=== PATIENT | female | born 1970 | race African-American/Black ===

== ENCOUNTER 2022-05-18 20:09 | Emergency (ER) | payer SELFPAY ==
[2022-05-18] VITALS (17 sets, daily range): BP systolic 122–142; BP diastolic 74–89; PULSE 81–96; RESP 18–24; TEMP 36.7–37.1; O2SAT 96–100; BMI 42.9
[2022-05-18] MEDS: 0.9 % SODIUM CHLORIDE 1000 ml 1,000 ML IV ×2 (20:28→21:25)
[2022-05-18 20:31] LABS: Basophils Percent Auto 0.2 % (0.0-3.0); Eosinophils Percent Auto 0.9 % (0.0-7.0); Hematocrit 39.6 % (33.0-51.0); Hemoglobin* 12.5 gm/dL (12.0-16.0); Immature Granulocytes Pct Auto 0.2 %; Lymphocytes Percent Auto 40.1 % (20-44); Mean Corpuscular HGB Conc 32 gm/dL (32-36); Mean Corpuscular Hemoglobin 27 pg (26-34); Mean Corpuscular Volume 85 fL (80-100); Monocytes Percent Auto 3.7 % (0.0-11.0); Neutrophils Percent Auto 54.9 % (42.0-72.0); Platelet Count* 487 K/uL (140-440); RDW Coefficient of Variation % 14.4 % (11.5-15.5); Red Blood Count 4.65 m/uL (4.00-5.20); White Blood Count* 16.59 K/uL (4.50-11.00)
[2022-05-18 20:33] LABS: Slide Review Reflex Yes
[2022-05-18 20:38] LABS: Chloride* 106 mmol/L (96-114); Sodium* 138 mmol/L (135-149)
[2022-05-18 20:40] LABS: INR 0.96 (0.91-1.10); Prothrombin Time 13.4 Seconds
[2022-05-18 20:41] LABS: Blood Urea Nitrogen* 11 mg/dL (7-30); Carbon Dioxide* 10 mmol/L (20-32); Creatinine* 0.9 mg/dL (0.5-1.5); Est. Creatinine Clearance* 63.86; Estimated Glomerular Filt Rate 77 ml/min; Glucose* 158 mg/dL (60-115); Potassium* 4.1 mmol/L (3.6-5.1)
[2022-05-18 20:42] LABS: Calcium* 9.4 mg/dL (8.4-10.6)
[2022-05-18 20:43] LABS: D Dimer Quantitative* 1.14 ug/ml (0.00-0.50)
--- NOTE | 2022-05-18 20:49 | ED.GENADULT ---
HPI - General Adult General Date Seen: 05/18/22 Chief complaint: Syncope/Fainted Stated complaint: Syncope Time Seen by Provider: 05/18/22 20:12 Source: patient Mode of arrival: other (Stretcher) Limitations: no limitations and altered mental status History of Present Illness HPI narrative: Patient is a 51-year-old female who just started working down long-term care 2 days ago, she is a traveler edges came here from [place], she works as a health aide in long-term care, she was on a break, and she was found, slumped in her chair, with some drool coming down her face, she was lowered to the ground, she promptly regained consciousness, but was confused at the time. Was unknown how long she was there, thought to be less than 15 minutes as it was her break. She is now back to baseline, but clearly was confused when we 1st found her. Blood sugar was 160, she denies any medication ingestion, any history of diabetes, any history of falls or injury, but can not remember the events over what happened. She is working nights, just came on her shift, a few hours ago. She ate breakfast this morning but did not eat since then. No past history of any heart problems, lung problems, or other issues. Denies any current pain in her head, chest, shortness of breath, and was feeling fine up to this. Associated symptoms: denies other symptoms Treatments prior to arrival: none Related Data Home Medications Medication Instructions Recorded Confirmed No Known Home Medications 05/18/22 05/18/22 Allergies Allergy/AdvReac Type Severity Reaction Status Date / Time No Known Drug Allergies Allergy Verified 05/18/22 20:28 Review of Systems Status of ROS: Reports: 10 or more systems reviewed and unremarkable except as noted in History and below Exam Narrative: Exam Narrative: Patient is seen in room a, she is alert oriented speaking to me normally, no slurring of her words, she knows where she is, but she has no recollection of the events that just occurred. Patient is speaking normally, problem with noslurring words, oriented x3. Head eyes ears nose and throat exam show equal pupils, no scleral icterus, extraocular muscles are normal, no facial droop, speech is normal, trachea normal and midline. Thyroid normal midline palpable not enlarged. Chest shows symmetrical rise bilaterally, normal auscultation with no wheezes, no increased work of breathing, no overt bruising or lesions seen, no tenderness is noted on auscultation. Heart sounds normal with no S3-S4 no murmurs clicks or gallops. Abdomen shows no obvious masses or hepatosplenomegaly, no organomegaly, bowel sounds are normal in all quadrants. No tenderness is noted also in all quadrants. Upper and lower extremities show normal power, normal range of motion, pulses are normal, sensations normal, fine motor movements are normal, pelvis is stable to rocking. Cervical spine shows normal range of motion, and palpably not tender. Thoracic spine shows normal range of motion, and palpably not tender, lumbar spine shows no tenderness to palpation percussion and is otherwise normal range of motion. Skin shows no rashes, petechiae or eccymosis. She is agreeable to workup, she said this is never happened to her before. No evidence of any oropharyngeal trauma, tongue biting, she did not urinate, if her incontinence or onchoparesis Const: Vital Signs, click to edit/add: Vital Signs - 24 hr 05/18/22 20:21 05/18/22 20:34 05/18/22 20:39 Temperature 98.1 F 98.8 F Pulse Rate Pulse Rate [Right Pulse Oximeter] 95 92 89 Respiratory Rate 18 24 Blood Pressure Blood Pressure [Le ft Upper Arm] 122/74 142/89 H Pulse Oximetry 96 98 Oxygen Delivery [facility] Room Air Room Air 05/18/22 20:26 05/18/22 20:30 05/18/22 20:32 Temperature Pulse Rate 94 92 96 Pulse Rate [Right Pulse Oximeter] Respiratory Rate Blood Pressure 142/89 H Blood Pressure [Le ft Upper Arm] Pulse Oximetry 99 99 100 Oxygen Delivery [facility] 05/18/22 20:33 05/18/22 20:46 05/18/22 20:45 Temperature Pulse Rate 95 87 Pulse Rate [Right Pulse Oximeter] Respiratory Rate Blood Pressure Blood Pressure [Le ft Upper Arm] Pulse Oximetry 100 98 98 Oxygen Delivery [facility] 05/18/22 20:47 05/18/22 20:48 05/18/22 21:00 Temperature Pulse Rate 86 86 85 Pulse Rate [Right Pulse Oximeter] Respiratory Rate Blood Pressure 139/88 Blood Pressure [Le ft Upper Arm] Pulse Oximetry 98 98 99 Oxygen Delivery [facility] 05/18/22 21:01 02/01/23 21:23 05/18/22 21:30 Temperature Pulse Rate 85 86 81 Pulse Rate [Right Pulse Oximeter] Respiratory Rate Blood Pressure 134/89 Blood Pressure [Le ft Upper Arm] Pulse Oximetry 98 99 100 Oxygen Delivery Me [facility] 05/18/22 21:32 05/18/22 22:56 Temperature 98.8 F Pulse Rate 81 Pulse Rate [Right Pulse Oximeter] 89 Respiratory Rate 24 Blood Pressure 140/89 H Blood Pressure [Le ft Upper Arm] Pulse Oximetry 98 Oxygen Delivery Me [facility] Documenting provider has reviewed patient's vital signs: yes Course Course Hospital Course: Discussed with the patient that at this time, her D-dimer is elevated, in the setting of a it least syncope, I would recommend a PE study, she is in agreement. She feels back to baseline at this point, and feels great, we will give her sec L of fluids, and recheck her troponin and EKG. Reevaluation(s) Reevaluation #1: Patient is able to walk around the ER, she has remained is normal sinus rhythm on the monitor, 2nd EKG shows no changes, follow-up troponin done 2 hours after she got here shows 0.02, given her delta of 0.[address] scan is done with PE protocol showing no evidence of PE, she did have 1 nodule, that will need follow-up in this is explain to her. Her urine drug screen did show marijuana, which is not a problem, and cause of this. I explained to her that I do not have a cause of this, her total CO2 was down, which can be an element of dehydration, I feel that she should maintain her fluids eating get some sleep. If she has recurrent episodes with syncope, feeling that she has tachycardia, passing out, or other issue she should come back is seen. I do not get a feeling that this was a seizure. She was comfortable and reassured by this. Time: 22:59 Vital Signs Vital signs: Initial Vital Signs Temperature 98.1 F 05/18/22 20:21 Temperature Source Temporal Artery Scan 05/18/22 20:21 Pulse Rate 95 05/18/22 20:21 Respiratory Rate 18 05/18/22 20:21 Blood Pressure 122/74 05/18/22 20:21 Blood Pressure Mean 90 05/18/22 20:21 Blood Pressure Position Supine 05/18/22 20:21 Pulse Oximetry 96 05/18/22 20:21 Oxygen Delivery Method 05/18/22 20:21 Vital Signs Temperature 98.1 F 05/18/22 20:21 Pulse Rate 95 05/18/22 20:21 Respiratory Rate 18 05/18/22 20:21 Blood Pressure 122/74 05/18/22 20:21 Pulse Oximetry 96 05/18/22 20:21 Oxygen Delivery Method 05/18/22 20:21 Temperature 98.8 F 05/18/22 22:56 Pulse Rate 89 05/18/22 22:56 Respiratory Rate 24 05/18/22 22:56 Blood Pressure 140/89 H 05/18/22 21:32 Pulse Oximetry 98 05/18/22 21:32 Oxygen Delivery Method 05/18/22 20:39 Medical Decision Making MDM Narrative Medical decision making narrative: Life-threatening differential diagnosis considered include: Cardiac arrhythmia, acute blood loss, and intracranial bleed. Other differential diagnosis include but are not limited to vasovagal syncope, orthostatic syncope, seizure, as well as other etiologies Lab Data Lab results reviewed: Yes I reviewed the patient's lab results Labs: Lab Results 05/18/22 05/18/22 05/18/22 Range/Units 20:13 20:15 20:15 WBC 16.59 H (4.50-11.00) K/uL RBC 4.65 (4.00-5.20) m/uL Hgb 12.5 (12.0-16.0) gm/dL Hct 39.6 (33.0-51.0) % MCV 85 (80-100) fL MCH 27 (26-34) pg MCHC 32 (32-36) gm/dL RDW Coeff of Georgette 14.4 (11.5-15.5) % Plt Count 487 H (140-440) K/uL Neut % (Auto) 54.9 (42.0-72.0) % Lymph % (Auto) 40.1 (20-44) % [place] % (Auto) 3.7 (0.0-11.0) % Eos % (Auto) 0.9 (0.0-7.0) % Baso % (Auto) 0.2 (0.0-3.0) % Neut # (Auto) 9.10 H (1.7-7.0) K/uL Lymph # (Auto) 6.70 H (0.90-2.90) K/uL [place] # (Auto) 0.60 (0.00-0.90) K/UL Eos # (Auto) 0.10 (0.00-0.50) K/uL Baso # (Auto) 0.00 (0.00-0.30) K/uL Diff Slide Review Acceptable Review (Acceptable) INR (0.91-1.10) D-Dimer Quant (PE/DVT) (0.00-0.50) ug/ml Sodium 138 (135-149) mmol/L Potassium 4.1 (3.6-5.1) mmol/L Chloride 106 (96-114) mmol/L Carbon Dioxide 10 L (20-32) mmol/L BUN 11 (7-30) mg/dL Creatinine 0.9 (0.5-1.5) mg/dL Estimated Creat Clear 63.86 Estimated GFR 77 ml/min Glucose 158 H (60-115) mg/dL Calcium 9.4 (8.4-10.6) mg/dL HCG, Qual (Negative) Urine Color (Yellow) Urine Appearance (Clear) Urine pH (5.0-8.5) Ur Specific [place] (1.000-1.030) Urine Protein (Negative) Urine Glucose (UA) (Negative) Urine Ketones (Negative) Urine Blood (Negative) Urine Nitrite (Negative) Urine Bilirubin (Negative) Urine Urobilinogen (0.2-1.0) Ur Leukocyte Esterase (Negative) Urine RBC (0-2) Urine WBC (0-5) Urine WBC Clumps (None) Ur Squamous Epith Cells (None-Few) Urine Bacteria (None) Urine Opiates Screen (Negative) Ur Oxycodone Screen (Negative) Urine Methadone Screen (Negative) Ur Propoxyphene Screen (Negative) Ur Barbiturates Screen (Negative) U Tricyclic Antidepress (Negative) Ur Phencyclidine Scrn (Negative) Ur Amphetamines Screen (Negative) U Methamphetamines Scrn (Negative) U Benzodiazepines Scrn (Negative) Urine Cocaine Screen (Negative) U Marijuana (THC) Screen (Negative) Ur Drug Screen Comment Ethyl Alcohol (0.01-0.03) % SARS-CoV-2 (PCR) Negative SARS-CoV-2 (Negative) Influenza Type A (PCR) Negative PCR FLU A (Negative) Influenza Type B (PCR) Negative PCR FLU B (Negative) RSV (PCR) Negative PCR RSV (Negative) POC Troponin I (0.01-0.04) ng/ml 05/18/22 05/18/22 05/18/22 Range/Units 20:15 20:15 20:15 WBC (4.50-11.00) K/uL RBC (4.00-5.20) m/uL Hgb (12.0-16.0) gm/dL Hct (33.0-51.0) % MCV (80-100) fL MCH (26-34) pg MCHC (32-36) gm/dL RDW Coeff of Georgette (11.5-15.5) % Plt Count (140-440) K/uL Neut % (Auto) (42.0-72.0) % Lymph % (Auto) (20-44) % [place] % (Auto) (0.0-11.0) % Eos % (Auto) (0.0-7.0) % Baso % (Auto) (0.0-3.0) % Neut # (Auto) (1.7-7.0) K/uL Lymph # (Auto) (0.90-2.90) K/uL [place] # (Auto) (0.00-0.90) K/UL Eos # (Auto) (0.00-0.50) K/uL Baso # (Auto) (0.00-0.30) K/uL Diff Slide Review (Acceptable) INR 0.96 (0.91-1.10) D-Dimer Quant (PE/DVT) 1.14 H (0.00-0.50) ug/ml Sodium (135-149) mmol/L Potassium (3.6-5.1) mmol/L Chloride (96-114) mmol/L Carbon Dioxide (20-32) mmol/L BUN (7-30) mg/dL Creatinine (0.5-1.5) mg/dL Estimated Creat Clear Estimated GFR ml/min Glucose (60-115) mg/dL Calcium (8.4-10.6) mg/dL HCG, Qual (Negative) Urine Color (Yellow) Urine Appearance (Clear) Urine pH (5.0-8.5) Ur Specific [place] (1.000-1.030) Urine Protein (Negative) Urine Glucose (UA) (Negative) Urine Ketones (Negative) Urine Blood (Negative) Urine Nitrite (Negative) Urine Bilirubin (Negative) Urine Urobilinogen (0.2-1.0) Ur Leukocyte Esterase (Negative) Urine RBC (0-2) Urine WBC (0-5) Urine WBC Clumps (None) Ur Squamous Epith Cells (None-Few) Urine Bacteria (None) Urine Opiates Screen (Negative) Ur Oxycodone Screen (Negative) Urine Methadone Screen (Negative) Ur Propoxyphene Screen (Negative) Ur Barbiturates Screen (Negative) U Tricyclic Antidepress (Negative) Ur Phencyclidine Scrn (Negative) Ur Amphetamines Screen (Negative) U Methamphetamines Scrn (Negative) U Benzodiazepines Scrn (Negative) Urine Cocaine Screen (Negative) U Marijuana (THC) Screen (Negative) Ur Drug Screen Comment Ethyl Alcohol < 0.01 L (0.01-0.03) % SARS-CoV-2 (PCR) (Negative) Influenza Type A (PCR) (Negative) Influenza Type B (PCR) (Negative) RSV (PCR) (Negative) POC Troponin I 0.00 L (0.01-0.04) ng/ml 05/18/22 05/18/22 05/18/22 Range/Units 20:15 21:17 21:17 WBC (4.50-11.00) K/uL RBC (4.00-5.20) m/uL Hgb (12.0-16.0) gm/dL Hct (33.0-51.0) % MCV (80-100) fL MCH (26-34) pg MCHC (32-36) gm/dL RDW Coeff of Georgette (11.5-15.5) % Plt Count (140-440) K/uL Neut % (Auto) (42.0-72.0) % Lymph % (Auto) (20-44) % [place] % (Auto) (0.0-11.0) % Eos % (Auto) (0.0-7.0) % Baso % (Auto) (0.0-3.0) % Neut # (Auto) (1.7-7.0) K/uL Lymph # (Auto) (0.90-2.90) K/uL [place] # (Auto) (0.00-0.90) K/UL Eos # (Auto) (0.00-0.50) K/uL Baso # (Auto) (0.00-0.30) K/uL Diff Slide Review (Acceptable) INR (0.91-1.10) D-Dimer Quant (PE/DVT) (0.00-0.50) ug/ml Sodium (135-149) mmol/L Potassium (3.6-5.1) mmol/L Chloride (96-114) mmol/L Carbon Dioxide (20-32) mmol/L BUN (7-30) mg/dL Creatinine (0.5-1.5) mg/dL Estimated Creat Clear Estimated GFR ml/min Glucose (60-115) mg/dL Calcium (8.4-10.6) mg/dL HCG, Qual Negative Cancelled (Negative) Urine Color Yellow (Yellow) Urine Appearance Cloudy A (Clear) Urine pH 5.0 (5.0-8.5) Ur Specific [place] 1.020 (1.000-1.030) Urine Protein 1+ A (Negative) Urine Glucose (UA) Negative (Negative) Urine Ketones Negative (Negative) Urine Blood Trace-intact A (Negative) Urine Nitrite Negative (Negative) Urine Bilirubin Negative (Negative) Urine Urobilinogen 0.2 (0.2-1.0) Ur Leukocyte Esterase Negative (Negative) Urine RBC 0-2 (0-2) Urine WBC 0-2 (0-5) Urine WBC Clumps None (None) Ur Squamous Epith Cells Moderate A (None-Few) Urine Bacteria Few A (None) Urine Opiates Screen Negative (Negative) Ur Oxycodone Screen Negative (Negative) Urine Methadone Screen Negative (Negative) Ur Propoxyphene Screen Negative (Negative) Ur Barbiturates Screen Negative (Negative) U Tricyclic Antidepress Negative (Negative) Ur Phencyclidine Scrn Negative (Negative) Ur Amphetamines Screen Negative (Negative) U Methamphetamines Scrn Negative (Negative) U Benzodiazepines Scrn Negative (Negative) Urine Cocaine Screen Negative (Negative) U Marijuana (THC) Screen POSITIVE A* (Negative) Ur Drug Screen Comment See Note Ethyl Alcohol (0.01-0.03) % SARS-CoV-2 (PCR) (Negative) Influenza Type A (PCR) (Negative) Influenza Type B (PCR) (Negative) RSV (PCR) (Negative) POC Troponin I (0.01-0.04) ng/ml 05/18/22 Range/Units 22:09 WBC (4.50-11.00) K/uL RBC (4.00-5.20) m/uL Hgb (12.0-16.0) gm/dL Hct (33.0-51.0) % MCV (80-100) fL MCH (26-34) pg MCHC (32-36) gm/dL RDW Coeff of Georgette (11.5-15.5) % Plt Count (140-440) K/uL Neut % (Auto) (42.0-72.0) % Lymph % (Auto) (20-44) % [place] % (Auto) (0.0-11.0) % Eos % (Auto) (0.0-7.0) % Baso % (Auto) (0.0-3.0) % Neut # (Auto) (1.7-7.0) K/uL Lymph # (Auto) (0.90-2.90) K/uL [place] # (Auto) (0.00-0.90) K/UL Eos # (Auto) (0.00-0.50) K/uL Baso # (Auto) (0.00-0.30) K/uL Diff Slide Review (Acceptable) INR (0.91-1.10) D-Dimer Quant (PE/DVT) (0.00-0.50) ug/ml Sodium (135-149) mmol/L Potassium (3.6-5.1) mmol/L Chloride (96-114) mmol/L Carbon Dioxide (20-32) mmol/L BUN (7-30) mg/dL Creatinine (0.5-1.5) mg/dL Estimated Creat Clear Estimated GFR ml/min Glucose (60-115) mg/dL Calcium (8.4-10.6) mg/dL HCG, Qual (Negative) Urine Color (Yellow) Urine Appearance (Clear) Urine pH (5.0-8.5) Ur Specific [place] (1.000-1.030) Urine Protein (Negative) Urine Glucose (UA) (Negative) Urine Ketones (Negative) Urine Blood (Negative) Urine Nitrite (Negative) Urine Bilirubin (Negative) Urine Urobilinogen (0.2-1.0) Ur Leukocyte Esterase (Negative) Urine RBC (0-2) Urine WBC (0-5) Urine WBC Clumps (None) Ur Squamous Epith Cells (None-Few) Urine Bacteria (None) Urine Opiates Screen (Negative) Ur Oxycodone Screen (Negative) Urine Methadone Screen (Negative) Ur Propoxyphene Screen (Negative) Ur Barbiturates Screen (Negative) U Tricyclic Antidepress (Negative) Ur Phencyclidine Scrn (Negative) Ur Amphetamines Screen (Negative) U Methamphetamines Scrn (Negative) U Benzodiazepines Scrn (Negative) Urine Cocaine Screen (Negative) U Marijuana (THC) Screen (Negative) Ur Drug Screen Comment Ethyl Alcohol (0.01-0.03) % SARS-CoV-2 (PCR) (Negative) Influenza Type A (PCR) (Negative) Influenza Type B (PCR) (Negative) RSV (PCR) (Negative) POC Troponin I 0.02 (0.01-0.04) ng/ml Imaging Data CT scan - chest: Attestation: I have reviewed the pertinent imaging results. Radiologist's impression: atient: SOPHY SMITH Facility:?[facility] Patient ID:?[id number] Site Patient ID:?[id number]. Site :?[id number] Study:?CT Chest Angio PE STUDY-05/18/2022 10:02:59 PM Ordering Physician:Elisa Kidd Final Report: INDICATION: Syncope. TECHNIQUE: CT chest PE was acquired with 95 cc Isovue 370 IV contrast. COMPARISON: None. FINDINGS: Heart and vasculature: Contrast opacification of the pulmonary arterial tree is adequate. No sign of pulmonary embolism. Heart size is normal. Thoracic aorta and pulmonary artery are normal in caliber. Lungs and pleura: Small cluster of tree-in-bud nodules in the left lower lobe superior segment with an associated 1.2 cm pulmonary nodule. The remainder of the lungs are clear. No pleural effusion or pneumothorax. The central airways are clear. Lymph nodes/mediastinum: No mediastinal, hilar, or axillary adenopathy. Chest wall: No masses. Upper abdomen: Indeterminate 1.9 cm right adrenal nodule. Bones: Unremarkable for age. IMPRESSION: No pulmonary embolism. Small cluster of tree-in-bud nodules in the left lower lobe superior segment with an associated 1.2 cm pulmonary nodule. This could represent subclinical acute versus chronic infection. Recommend follow-up chest CT in 3 months to evaluate for persistence of the 1.2 cm nodule. Indeterminate 1.9 cm right adrenal nodule. Recommend dedicated routine adrenal CT for further characterization. Please note that all CT scans at this facility use dose modulation, iterative reconstruction, and/or weight-based dosing when appropriate to reduce radiation dose to as low as reasonably achievable. Dictated by Jonathan Tolbert MD @ 05/18/2022 10:15:54 PM (Electronic Signature) ECG Data Attestation: I personally reviewed and interpreted this ECG as follows: Prior ECG tracings: not available for review Interpretation: EKG shows normal sinus rhythm with a heart rate of 100, there is no acute ST wave changes, but there is some T-wave flattening throughout all the leads, which may be a normal variant. Her intervals are all normal, QRS, QT, LA. Assessment: No acute findings on EKG. Second EKG shows normal sinus rhythm, no acute changes. Impression: No acute changes. Discharge Plan Discharge Clinical Impression: Syncope and collapse, Incidental pulmonary nodule Patient Disposition: Home, Self-Care Condition: Stable Additional Instructions: Home, rest, continue fluids any, get some sleep, take it easy tomorrow, no alcohol x3 days, the tests all showed no evidence of blood clot, heart tests were normal, it showed that there probably was a little dehydration contributing to this also. There was a small pulmonary nodule which we discussed, recommend follow-up with her regular physician for recheck in [address] scan to ensure that is not growing. Further problems with passing out, then with would elicit a cardiac evaluation. Return as needed. The drug screen did show some marijuana, I consider this almost a normal part of life now, do not even really consider this an issue. This is just for your information. Prescriptions: No Action No Known Home Medications Follow Up/Referrals: Provider,Not a Local [Primary Care Provider] - Stand Alone Forms: MyHealth Info Instructions Procedures Ultrasound Cardiac exam #1: Anatomical areas examined: subxiphoid, parasternal long, parasternal short and apical 4 chamber Indications: other (Syncope) Exam type: limited transthoracic echocardiogram Impression: negative exam
[2022-05-18 20:52] LABS: HCG Qualitative Serum* Negative (Negative)
[2022-05-18 21:07] LABS: PCR FLU A Negative PCR FLU A (Negative); PCR FLU B Negative PCR FLU B (Negative); PCR RSV Negative PCR RSV (Negative)
[2022-05-18 21:09] LABS: Ethanol* < 0.01 % (0.01-0.03)
[2022-05-18 21:09] LABS: SARS PCR* Negative SARS-CoV-2 (Negative)
[2022-05-18 21:13] LABS: Slide Review Acceptable Review (Acceptable)
--- NOTE | 2022-05-18 21:19 | CRLHL7_ITS ---
For Patients: As a result of the Century Cures Act, medical imaging exams and procedure reports are released immediately into your electronic medical record. You may view this report before your referring provider. If you have questions, please contact your health care provider. INDICATION: Syncope. TECHNIQUE: CT chest PE was acquired with 95 cc Isovue 370 IV contrast. COMPARISON: None. FINDINGS: Heart and vasculature: Contrast opacification of the pulmonary arterial tree is adequate. No sign of pulmonary embolism. Heart size is normal. Thoracic aorta and pulmonary artery are normal in caliber. Lungs and pleura: Small cluster of tree-in-bud nodules in the left lower lobe superior segment with an associated 1.2 cm pulmonary nodule. The remainder of the lungs are clear. No pleural effusion or pneumothorax. The central airways are clear. Lymph nodes/mediastinum: No mediastinal, hilar, or axillary adenopathy. Chest wall: No masses. Upper abdomen: Indeterminate 1.9 cm right adrenal nodule. Bones: Unremarkable for age. IMPRESSION: No pulmonary embolism. Small cluster of tree-in-bud nodules in the left lower lobe superior segment with an associated 1.2 cm pulmonary nodule. This could represent subclinical acute versus chronic infection. Recommend follow-up chest CT in 3 months to evaluate for persistence of the 1.2 cm nodule. Indeterminate 1.9 cm right adrenal nodule. Recommend dedicated routine adrenal CT for further characterization. Please note that all CT scans at this facility use dose modulation, iterative reconstruction, and/or weight-based dosing when appropriate to reduce radiation dose to as low as reasonably achievable. Dictated by Jonathan Tolbert MD @ 05/18/2022 10:15:54 PM (Electronically Signed)
[2022-05-18 21:31] LABS: Appearance Urine Cloudy (Clear); Bilirubin Urine Negative (Negative); Blood Urine Trace-intact (Negative); Color Urine Yellow (Yellow); Glucose Urine Negative (Negative); Ketones Urine Negative (Negative); Leukocyte Esterase Urine Negative (Negative); Nitrite Urine Negative (Negative); Protein Urine 1+ (Negative); Urobilinogen Urine 0.2 (0.2-1.0)
[2022-05-18 21:37] LABS: Amphetamine Screen Urine Negative (Negative); Barbiturate Screen Urine Negative (Negative); Benzodiazepines Screen Urine Negative (Negative); Cocaine Screen Urine Negative (Negative); Methadone Screen Urine Negative (Negative); Methamphetamines Screen Urine Negative (Negative); Opiate Screen Urine Negative (Negative); Oxycodone Screen Urine Negative (Negative); Phencyclidine Screen Urine Negative (Negative); Tricyclic Antidepressant Urine Negative (Negative)
[2022-05-18 21:39] LABS: Cannabinoid Screen Urine POSITIVE (Negative)
[2022-05-18 21:50] LABS: RBC Urine 0-2 (0-2); Squamous Epithelial Cell Urine Moderate (None-Few); WBC Urine 0-2 (0-5)
[2022-05-18 21:51] LABS: Bacteria Urine Few
[2022-05-18 22:35] LABS: Troponin, Point-of-Care* 0.02 ng/ml (0.01-0.04)
== END 2022-05-18 23:00 | disposition home or self-care (01) ==
PROVIDERS: Emergency Provider Family Medicine
DX: R55 Syncope and collapse (principal); R91.8 Other nonspecific abnormal finding of lung field
CPT/HCPCS: 36415; 71260; 80048; 80306; 81001; 82077; 82962; 84484; 84703; 85025; 85379; 85610; 87086; 87502; 87634; 87635; 93005; 94761; 99284; 99285; J7030; Q9967

== ENCOUNTER 2022-07-01 15:19 | Emergency (ER) | payer SELFPAY ==
[2022-07-01] VITALS (17 sets, daily range): BP systolic 107–147; BP diastolic 74–94; PULSE 82–100; RESP 18; O2SAT 95–100; BMI 42.9
--- NOTE | 2022-07-01 15:29 | CRLHL7_ITS ---
For Patients: As a result of the Century Cures Act, medical imaging exams and procedure reports are released immediately into your electronic medical record. You may view this report before your referring provider. If you have questions, please contact your health care provider. INDICATION: Seizure TECHNIQUE: CT head without contrast. COMPARISON: None FINDINGS: CSF spaces: Within normal limits for age. Brain parenchyma: The andrews-white differentiation is normal. No sign of mass, hemorrhage, or midline shift. Skull base and calvarium: The visualized paranasal sinuses and mastoid air cells demonstrate no acute or significant findings. The visualized orbits are grossly unremarkable. No skull fractures. IMPRESSION: Unremarkable noncontrast head CT. Dictated by Cam Kiran MD @ 07/01/2022 4:20:16 PM Please note that all CT scans at this facility use dose modulation, iterative reconstruction, and/or weight-based dosing when appropriate to reduce radiation dose to as low as reasonably achievable. Dictated by: Cam Kiran MD @ 07/01/2022 16:20:24 (Electronically Signed)
--- NOTE | 2022-07-01 15:30 | ED.NURSE ---
Seizure pads applied to bedside.
--- NOTE | 2022-07-01 15:30 | ED.NURSE ---
BG 137
[2022-07-01] MEDS: LORazepam 2 MG/ML inj 1 MG IVP (15:36)
[2022-07-01] MEDS: 0.9 % SODIUM CHLORIDE 1000 ml 1,000 ML IV (15:36)
[2022-07-01 15:50] LABS: Basophils Percent Auto 0.3 % (0.0-3.0); Eosinophils Percent Auto 1.6 % (0.0-7.0); Hematocrit 39.5 % (33.0-51.0); Hemoglobin* 12.5 gm/dL (12.0-16.0); Immature Granulocytes Pct Auto 0.8 %; Lymphocytes Percent Auto 46.7 % (20-44); Mean Corpuscular HGB Conc 32 gm/dL (32-36); Mean Corpuscular Hemoglobin 27 pg (26-34); Mean Corpuscular Volume 85 fL (80-100); Monocytes Percent Auto 6.1 % (0.0-11.0); Neutrophils Percent Auto 44.5 % (42.0-72.0); Platelet Count* 394 K/uL (140-440); RDW Coefficient of Variation % 14.3 % (11.5-15.5); Red Blood Count 4.67 m/uL (4.00-5.20); White Blood Count* 14.74 K/uL (4.50-11.00)
[2022-07-01 15:51] LABS: Slide Review Reflex No
[2022-07-01 15:53] LABS: Lactate* 10.4 mmol/L (0.5-1.9)
--- NOTE | 2022-07-01 16:21 | ED.GENADULT ---
HPI - General Adult General Chief complaint: Seizure Stated complaint: Rapid Response Time Seen by Provider: 07/01/22 15:29 Source: other (Long-term care and hospital staff) Mode of arrival: other (Hospital bed) Limitations: altered mental status History of Present Illness HPI narrative: Patient is a 51-year-old female who is brought in from the long-term [facility] on hospital bed after she suffered a witnessed seizure while at work. According to staff that witnessed the incident, patient started convulsing with her entire body, she was helped to the floor and the convulsions lasted about 2 minutes. She was then brought to the ER for evaluation. Related Data Previous Rx's Medication Instructions Recorded levetiracetam 500 mg tablet 500 mg PO BID #60 tabs 07/01/22 (Kejaxonra) Allergies Allergy/AdvReac Type Severity Reaction Status Date / Time No Known Drug Allergies Allergy Verified 05/18/22 20:28 Review of Systems Status of ROS: Reports: unobtainable due to mental status Exam Narrative: Exam Narrative: Upon arrival to the ER, patient's vital is stable however she is only responsive to noxious stimuli. She is maintaining her airway and breathing without difficulty. Overweight patient. Diaphoretic. HEENT: Normocephalic atraumatic. Pupils are equally round reactive to light. Extraocular muscles are intact. Conjunctivae are moist without any icterus noted. Moist mucous membranes. Posterior pharynx is normal. Neck is soft without any lymphadenopathy or thyromegaly. No masses are appreciated. Cardiovascular: Heart is regular rate and rhythm S1 and S2 are present without any murmurs. Lungs: Clear to auscultation bilaterally no wheezes rhonchi or rales are appreciated. Patient takes deep breaths without any discomfort. Abdomen: Soft and nontender nondistended with normal bowel sounds. No guarding or rebound. No masses or organomegaly appreciated. Extremities: Bilateral lower extremities are without edema. Normal DP and PT pulses. Skin: Well perfused without any obvious rashes. Const: Vital Signs, click to edit/add: Vital Signs - 24 hr 07/01/22 15:29 07/01/22 16:20 07/01/22 15:52 Pulse Rate 90 Pulse Rate [Left P ulse Oximeter] 87 Respiratory Rate 18 Blood Pressure Blood Pressure [Le ft Upper Arm] 107/74 Pulse Oximetry 100 100 100 Oxygen Delivery Me thod Room Air 07/01/22 15:54 07/01/22 16:00 07/01/22 16:01 Pulse Rate 96 89 90 Pulse Rate [Left P ulse Oximeter] Respiratory Rate Blood Pressure 131/78 117/79 Blood Pressure [Le ft Upper Arm] Pulse Oximetry 100 100 100 Oxygen Delivery Me thod 07/01/22 16:15 07/01/22 16:16 07/01/22 16:30 Pulse Rate 95 92 90 Pulse Rate [Left P ulse Oximeter] Respiratory Rate Blood Pressure 107/74 Blood Pressure [Le ft Upper Arm] Pulse Oximetry 100 100 100 Oxygen Delivery Me thod 07/01/22 16:31 07/01/22 16:45 07/01/22 16:46 Pulse Rate 94 89 92 Pulse Rate [Left P ulse Oximeter] Respiratory Rate Blood Pressure 114/83 123/79 Blood Pressure [Le ft Upper Arm] Pulse Oximetry 100 100 100 Oxygen Delivery Me thod 07/01/22 16:47 07/01/22 17:00 07/01/22 17:03 Pulse Rate 87 98 100 Pulse Rate [Left P ulse Oximeter] Respiratory Rate Blood Pressure 147/91 H Blood Pressure [Le ft Upper Arm] Pulse Oximetry 100 100 95 Oxygen Delivery Me thod 07/01/22 17:15 07/01/22 17:16 Pulse Rate 82 85 Pulse Rate [Left P ulse Oximeter] Respiratory Rate Blood Pressure 114/94 H Blood Pressure [Le ft Upper Arm] Pulse Oximetry 100 100 Oxygen Delivery Me thod Course Course Hospital Course: IV was established fluids were started and labs were drawn. 1 mg of IV Ativan was given. Accu-Chek was done showed a blood glucose of 137. Approximately 20-30 minutes later patient did begin waking up. Approximately 1 hour after arrival patient was completely lucid. She tells me that she remembers everything this morning remembers having a bit of a headache in the afternoon. Then the next thing she remembers is waking up here. She denies any history of seizures in the past. She states that she smokes marijuana occasionally, denies other drug use or alcohol use. States that she takes a daily vitamin and daily fish oil. No family history of seizures that she is aware of. Looking through patient's chart she had an episode about a month ago where she was found unconscious in the cafeteria. At that time it was thought that she had a syncopal episode and her workup was unremarkable. Labs done today showed elevated lactate slightly elevated white cell count. Repeat lactate was normal. Other lab workup was unremarkable. Head CT was unremarkable. I did consult with Dr. Stone, at the [place] [facility] at [facility], who recommended 1 dose of IV Keppra and sending the patient home on 500 b.i.d. with Neurology follow-up. Vital Signs Vital signs: Initial Vital Signs Pulse Oximetry 100 07/01/22 15:29 Vital Signs Pulse Oximetry 100 07/01/22 15:29 Pulse Rate 85 07/01/22 17:16 Respiratory Rate 18 07/01/22 16:20 Blood Pressure 114/94 H 07/01/22 17:16 Pulse Oximetry 100 07/01/22 17:16 Oxygen Delivery Method 07/01/22 16:20 Medical Decision Making MDM Narrative Medical decision making narrative: 51-year-old female with witnessed seizure activity. Patient received IV Keppra in the ED and will be sent home with oral Keppra. The [place] [facility] will reach out to the patient to make a follow-up appointment. Medical Records Medical records reviewed: Yes I reviewed the patient's medical records Lab Data Lab results reviewed: Yes I reviewed the patient's lab results Labs: Lab Results 07/01/22 07/01/22 07/01/22 Range/Units 15:25 15:25 15:25 WBC 14.74 H (4.50-11.00) K/uL RBC 4.67 (4.00-5.20) m/uL Hgb 12.5 (12.0-16.0) gm/dL Hct 39.5 (33.0-51.0) % MCV 85 (80-100) fL MCH 27 (26-34) pg MCHC 32 (32-36) gm/dL RDW Coeff of Georgette 14.3 (11.5-15.5) % Plt Count 394 (140-440) K/uL Neut % (Auto) 44.5 (42.0-72.0) % Lymph % (Auto) 46.7 H (20-44) % Blanco % (Auto) 6.1 (0.0-11.0) % Eos % (Auto) 1.6 (0.0-7.0) % Baso % (Auto) 0.3 (0.0-3.0) % Neut # (Auto) 6.60 (1.7-7.0) K/uL Lymph # (Auto) 6.90 H (0.90-2.90) K/uL Blanco # (Auto) 0.90 (0.00-0.90) K/UL Eos # (Auto) 0.20 (0.00-0.50) K/uL Baso # (Auto) 0.00 (0.00-0.30) K/uL ESR 23 H (2-20) mm/hr Sodium (135-149) mmol/L Potassium (3.6-5.1) mmol/L Chloride (96-114) mmol/L Carbon Dioxide (20-32) mmol/L BUN (7-30) mg/dL Creatinine (0.5-1.5) mg/dL Estimated Creat Clear Estimated GFR ml/min Glucose (60-115) mg/dL Lactate (0.5-1.9) mmol/L Calcium (8.4-10.6) mg/dL Total Bilirubin (0.1-1.5) mg/dL Direct Bilirubin (0.0-0.5) mg/dL AST (12-35) U/L ALT (4-35) U/L Alkaline Phosphatase (40-150) U/L C-Reactive Protein (0.5-1.0) mg/dL Total Protein (6.0-8.3) g/dL Albumin (3.3-5.0) g/dL TSH (0.270-4.20) uIU/mL Salicylates (1.0-10) mg/dL Acetaminophen (10.0-30.0) ug/mL Ethyl Alcohol (0.01-0.03) % SARS-CoV-2 (PCR) (Negative) Influenza Type A (PCR) (Negative) Influenza Type B (PCR) (Negative) POC Troponin I 0.00 L (0.01-0.04) ng/ml 07/01/22 07/01/22 07/01/22 Range/Units 15:25 15:25 15:29 WBC (4.50-11.00) K/uL RBC (4.00-5.20) m/uL Hgb (12.0-16.0) gm/dL Hct (33.0-51.0) % MCV (80-100) fL MCH (26-34) pg MCHC (32-36) gm/dL RDW Coeff of Georgette (11.5-15.5) % Plt Count (140-440) K/uL Neut % (Auto) (42.0-72.0) % Lymph % (Auto) (20-44) % Blanco % (Auto) (0.0-11.0) % Eos % (Auto) (0.0-7.0) % Baso % (Auto) (0.0-3.0) % Neut # (Auto) (1.7-7.0) K/uL Lymph # (Auto) (0.90-2.90) K/uL Blanco # (Auto) (0.00-0.90) K/UL Eos # (Auto) (0.00-0.50) K/uL Baso # (Auto) (0.00-0.30) K/uL ESR (2-20) mm/hr Sodium 140 (135-149) mmol/L Potassium 4.3 (3.6-5.1) mmol/L Chloride 109 (96-114) mmol/L Carbon Dioxide 22 (20-32) mmol/L BUN 12 (7-30) mg/dL Creatinine 0.9 (0.5-1.5) mg/dL Estimated Creat Clear 63.86 Estimated GFR 77 ml/min Glucose 97 (60-115) mg/dL Lactate (0.5-1.9) mmol/L Calcium 8.8 (8.4-10.6) mg/dL Total Bilirubin 0.3 (0.1-1.5) mg/dL Direct Bilirubin 0.2 (0.0-0.5) mg/dL AST 18 (12-35) U/L ALT 20 (4-35) U/L Alkaline Phosphatase 66 (40-150) U/L C-Reactive Protein 0.6 (0.5-1.0) mg/dL Total Protein 7.5 (6.0-8.3) g/dL Albumin 3.8 (3.3-5.0) g/dL TSH 3.530 (0.270-4.20) uIU/mL Salicylates < 1.0 L (1.0-10) mg/dL Acetaminophen < 10.0 L (10.0-30.0) ug/mL Ethyl Alcohol < 0.01 L (0.01-0.03) % SARS-CoV-2 (PCR) Negative SARS-CoV-2 (Negative) Influenza Type A (PCR) Negative PCR FLU A (Negative) Influenza Type B (PCR) Negative PCR FLU B (Negative) POC Troponin I (0.01-0.04) ng/ml 07/01/22 07/01/22 Range/Units 15:29 17:22 WBC (4.50-11.00) K/uL RBC (4.00-5.20) m/uL Hgb (12.0-16.0) gm/dL Hct (33.0-51.0) % MCV (80-100) fL MCH (26-34) pg MCHC (32-36) gm/dL RDW Coeff of Georgette (11.5-15.5) % Plt Count (140-440) K/uL Neut % (Auto) (42.0-72.0) % Lymph % (Auto) (20-44) % Blanco % (Auto) (0.0-11.0) % Eos % (Auto) (0.0-7.0) % Baso % (Auto) (0.0-3.0) % Neut # (Auto) (1.7-7.0) K/uL Lymph # (Auto) (0.90-2.90) K/uL Blanco # (Auto) (0.00-0.90) K/UL Eos # (Auto) (0.00-0.50) K/uL Baso # (Auto) (0.00-0.30) K/uL ESR (2-20) mm/hr Sodium (135-149) mmol/L Potassium (3.6-5.1) mmol/L Chloride (96-114) mmol/L Carbon Dioxide (20-32) mmol/L BUN (7-30) mg/dL Creatinine (0.5-1.5) mg/dL Estimated Creat Clear Estimated GFR ml/min Glucose (60-115) mg/dL Lactate 10.4 H* 1.7 (0.5-1.9) mmol/L Calcium (8.4-10.6) mg/dL Total Bilirubin (0.1-1.5) mg/dL Direct Bilirubin (0.0-0.5) mg/dL AST (12-35) U/L ALT (4-35) U/L Alkaline Phosphatase (40-150) U/L C-Reactive Protein (0.5-1.0) mg/dL Total Protein (6.0-8.3) g/dL Albumin (3.3-5.0) g/dL TSH (0.270-4.20) uIU/mL Salicylates (1.0-10) mg/dL Acetaminophen (10.0-30.0) ug/mL Ethyl Alcohol (0.01-0.03) % SARS-CoV-2 (PCR) (Negative) Influenza Type A (PCR) (Negative) Influenza Type B (PCR) (Negative) POC Troponin I (0.01-0.04) ng/ml Imaging Data CT scan - head: Attestation: I have reviewed the pertinent imaging results. Radiologist's impression: CT head without contrast. COMPARISON: None FINDINGS: CSF spaces: Within normal limits for age. Brain parenchyma: The andrews-white differentiation is normal. No sign of mass, hemorrhage, or midline shift. Skull base and calvarium: The visualized paranasal sinuses and mastoid air cells demonstrate no acute or significant findings. The visualized orbits are grossly unremarkable. No skull fractures. IMPRESSION: Unremarkable noncontrast head CT. ECG Data Attestation: I personally reviewed and interpreted this ECG as follows: (Normal sinus rhythm, pulse 96) Critical Care Time Critical Care Time Total Critical Care Time in Minutes: 60 Discharge Plan Discharge Clinical Impression: New onset seizure Patient Disposition: Home, Self-Care Condition: Improved Additional Instructions: Start taking medications as prescribed. You should not drive, climb on ladders or go swimming/take baths without someone in attendance. The [place] [facility] will reach out to you on Monday morning to set up a follow-up appointment. Prescriptions: New levetiracetam [Keppra] 500 mg tablet 500 mg PO BID Qty: 60 2RF Follow Up/Referrals: Provider,Not a Local [Primary Care Provider] - Stand Alone Forms: [facility] Info Instructions
[2022-07-01 16:36] LABS: PCR FLU A Negative PCR FLU A (Negative); PCR FLU B Negative PCR FLU B (Negative)
[2022-07-01 16:39] LABS: SARS PCR* Negative SARS-CoV-2 (Negative)
[2022-07-01 16:40] LABS: Albumin* 3.8 g/dL (3.3-5.0); Chloride* 109 mmol/L (96-114)
[2022-07-01 16:41] LABS: Potassium* 4.3 mmol/L (3.6-5.1); Sodium* 140 mmol/L (135-149)
[2022-07-01 16:43] LABS: Creatinine* 0.9 mg/dL (0.5-1.5); Est. Creatinine Clearance* 63.86; Estimated Glomerular Filt Rate 77 ml/min
[2022-07-01 16:44] LABS: Alanine Aminotransferase* 20 U/L (4-35); Alkaline Phosphatase* 66 U/L (40-150); Aspartate Amino Transferase* 18 U/L (12-35); Bilirubin Direct* 0.2 mg/dL (0.0-0.5); Bilirubin Total* 0.3 mg/dL (0.1-1.5); Blood Urea Nitrogen* 12 mg/dL (7-30); Calcium* 8.8 mg/dL (8.4-10.6); Carbon Dioxide* 22 mmol/L (20-32); Glucose* 97 mg/dL (60-115); Total Protein* 7.5 g/dL (6.0-8.3)
[2022-07-01 16:45] LABS: Acetaminophen* < 10.0 ug/mL (10.0-30.0); Ethanol* < 0.01 % (0.01-0.03); Salicylate* < 1.0 mg/dL (1.0-10)
[2022-07-01 16:46] LABS: C Reactive Protein* 0.6 mg/dL (0.5-1.0)
[2022-07-01 17:20] LABS: Erythrocyte SedimentationRate* 23 mm/hr (2-20)
[2022-07-01 17:29] LABS: Lactate* 1.7 mmol/L (0.5-1.9)
== END 2022-07-01 19:02 | disposition home or self-care (01) ==
PROVIDERS: Emergency Provider Family Medicine
DX: R56.9 Unspecified convulsions (principal)
CPT/HCPCS: 36415; 70450; 80048; 80076; 80143; 80179; 80306; 81001; 82077; 83605; 84443; 84484; 85025; 85651; 86140; 87631; 93005; 94761; 96365; 96375; 99285; 99291; J1953; J2060; J7030